=== PATIENT | female | born 1990 | race Caucasian/White ===

== ENCOUNTER 2017-02-01 14:10 | Inpatient (IN) | payer BC, OTHER ==
[~2017-02-01] VITALS: Ht 167.6 cm; Wt 77.1 kg
--- NOTE | 2017-02-01 14:00 | NUR ---
pre-assessment note: pt is in stable condition at this time, pt was assessed in intake with stable V/S: B/P 116/63, 82,18,98.7,99%. pt is able to sign consents, explained unit protocols and regulations.
[2017-02-01] MEDS ORDERED: MAG HYDROX/AL HYDROX/SIMETH 30 ML LIQUID UDC PO PRN (14:30)
[2017-02-01] MEDS ORDERED: ACETAMINOPHEN 325 MG TABLET PO PRN (14:30)
[2017-02-01] MEDS ORDERED: LORAZEPAM 1 MG TABLET PO PRN ×2 (14:30)
[2017-02-01] MEDS ORDERED: BUPRENORPHINE HCL 2 MG TAB.SUBL SL PRN (14:30)
[2017-02-01] MEDS ORDERED: ONDANSETRON 4 MG/2 ML VIAL IM PRN (14:30)
[2017-02-01] MEDS ORDERED: MAGNESIUM HYDROXIDE 30 ML LIQUID UDC PO PRN (14:30)
[2017-02-01] MEDS ORDERED: LOPERAMIDE HCL 2 MG CAPSULE PO PRN ×2 (14:30)
[2017-02-01] MEDS ORDERED: MIRALAX 17 GM POWD.PACK PO PRN (14:30)
[2017-02-01] MEDS ORDERED: LORAZEPAM 2 MG/1 ML VIAL IM PRN (14:30)
[2017-02-01] MEDS ORDERED: LAMO200T PO (14:49)
[2017-02-01] MEDS ORDERED: GABA600T2 PO ×2 (14:50→14:51)
[2017-02-01] MEDS ORDERED: METH500T PO (14:52)
[2017-02-01] MEDS ORDERED: SUVO20TA PO (14:53)
--- NOTE | 2017-02-01 15:30 | NUR ---
admission note: Pt is a 26 y/o female admitted on 02/01/17 for Heroin, benzo, subutex dependence/withdrawal. She is the primary source of information. Pt is admitted under the care of Dr. Johnston to room 309. Urine has not been provided by pt for urine drug screen and a thorough body as well as belonging check was done by MEDICAL AFFAIRS DIRECTOR. Pt appears to be yawning during assessment. Pt is a pleasant friendly and cooperative. Pt denies any food or drug allergies is a full code and on universal precautions. Pt has no hx of seizures. pt has brought in gabapentin,lamictal, robaxin and controlled sleeping aid. pt has had hx of bartholin glad surgery and wisdom teeth extraction.pt has hx of Anxiety,Depression,bipolar II, ADHD, PTSD,insomnia. pt with primary care physician Dr. Fausto Milan in [place] and Last Psychiatrist she saw was Dr. Chase Cox. Substances: heroin: smokes 2 mg a day for 6 months xanax: 4 mg for 6 months klonopin: 2 mg for 6 months subutex: 32 mg a day for 6 months treatment centers: [facility] days Anthonyit yamini lott - 17 months
[2017-02-01 16:28] LABS: BASOPHILS % (AUTO) 0.8 % (0.0-2.0); EOSINOPHILS # (AUTO) 0.1 K/uL (0.0-0.7); HEMATOCRIT 39.3 % (37-47); HEMOGLOBIN 12.9 G/DL (12.0-16.0); LYMPHOCYTES # (AUTO) 1.3 K/UL (0.8-4.8); LYMPHOCYTES % (AUTO) 26.4 % (20.5-51.5); MEAN CORPUSCULAR HEMOGLOBIN 26.7 UUG (27.0-31.0); MEAN CORPUSCULAR HGB CONC 33 g/dL (32.0-37.0); MEAN CORPUSCULAR VOLUME 81.7 FL (81.0-99.0); MONOCYTES # (AUTO) 0.4 K/UL (0.1-1.30); MONOCYTES % (AUTO) 8.3 % (0.0-11.0); NEUTROPHILS # (AUTO) 3.1 K/UL (1.8-8.9); NEUTROPHILS % (AUTO) 62.5 % (38.5-71.5); PLATELET COUNT (AUTO) 200 K/UL (150-450); RED BLOOD CELL COUNT(AUTO) 4.81 MIL/UL (4.2-5.4); WHITE BLOOD COUNT (AUTO) 4.9 K/UL (4.0-11.2)
[2017-02-01 16:29] LABS: ALANINE AMINOTRANSFERASE 17 U/L (14-59); ALKALINE PHOSPHATASE 63 U/L (50-136); ASPARTATE AMINOTRANSFERASE 21 U/L (15-37); BILIRUBIN,TOTAL 0.5 mg/dL (0.2-1.0); CARBON DIOXIDE 30 mmol/L (21-32); CHLORIDE 102 mmol/L (98-107); CREATININE 0.8 mg/dL (0.6-1.3); GLUCOSE 87 mg/dL (74-106); MAGNESIUM 1.9 mg/dL (1.8-2.4); POTASSIUM 4.2 mmol/L (3.5-5.1); TOTAL PROTEIN, SERUM 7.1 g/dL (6.4-8.2); UREA NITROGEN, BLOOD 11 mg/dL (7-18)
[2017-02-01 16:39] LABS: THYROID STIMULATING HORMONE 0.883 mIU/mL (0.358-3.740)
[2017-02-01 17:17] LABS: ETHANOL < 3 MG/DL (0-0)
--- NOTE | 2017-02-01 19:28 | NUR ---
end of shift note: pt still has not provided UDS. pt is admitted for opiate/benzo withdrawal/dependence. pts last cows 5 and ciwa 6 pt seen and examined by with new orders for customized subutex and ativan taper. will endorse pt to warping mill operator nurse.
[2017-02-01 20:00] VITALS: BP 110/71
--- NOTE | 2017-02-01 20:00 | NUR ---
START OF SHIFT NOTE PATIENT IN ROOM. UPON GREETING ,PATIENT C/O SWEATING, ANXIETY, CHILLS, RESTLESSNESS, STUFFY NOSE, FLUSHED, NAUSEA BUT NO EMESIS, GENERALIZED BODY ACHES 6/10 AND TREMORS . RECEIVED REPORT FROM DAY SHIFT NURSE. PATIENT IS A 26 YEAR OLD FEMALE NEWLY ADMITTED FOR OPIATE/BENZO WITHDRAWAL. PATIENT IS FULL CODE, REGULAR DIET AND NO KNOWN ALLERGY. PATIENT IS ON 5 DAY ATIVAN AND 5 DAY SUBUTEX TAPER TO START TODAY. UPON ADMISSION, PATIENT REPORTED USING HEROIN SMOKES 2 MG FOR 6 MONTHS. XANAX 4 MG FOR 6 MONTHS. KLONOPIN 2 MG FOR 6 MONTHS AND SUBUTEX 32 MG FOR 4 MONTHS. PATIENT REPORTS PMH OF BARTHOLIN GLAND SURGERY,WISDOM TEETH EXTRACTION, BIPOLAR II ,ADHD,PTSD, GENERALIZED ANXIETY DISORDER , DEPRESSION AND INSOMNIA. SKIN INTACT. PATIENT DID NOT PROVIDE UA AT THIS TIME. PATIENT DID NOT REQUIRE PRN MEDICATION DURING THE DAY. LAST COWS 5 AND CIWA 6. ON FALL PRECAUTION. SAFETY MEASURES IN PLACE. CALL LIGHT IN REACH. WILL CONTINUE TO MONITOR
[2017-02-01 20:44] LABS: *URINE HCG, QUAL NEGATIVE (NEGATIVE)
[2017-02-01] MEDS ORDERED: LORAZEPAM 1 MG TABLET PO SCH (21:00)
[2017-02-01] MEDS ORDERED: BUPRENORPHINE HCL 2 MG TAB.SUBL SL SCH (21:00)
[2017-02-01 21:16] LABS: *AMPHETAMINE, URINE NEGATIVE (NEGATIVE); *BARBITURATE, URINE NEGATIVE (NEGATIVE); *CANNABINOID, URINE POSITIVE (NEGATIVE); *COCCAINE, URINE NEGATIVE (NEGATIVE); *OPIATE, URINE POSITIVE (NEGATIVE); *PHENCYCLIDINE SCREEN,URINE NEGATIVE (NEGATIVE)
[2017-02-01] MEDS ORDERED: LORAZEPAM 1 MG TABLET ONE (21:36)
[2017-02-01] MEDS ORDERED: BUPRENORPHINE HCL 2 MG TAB.SUBL SL ONE (21:36)
[2017-02-01] MEDS ORDERED: PRAZOSIN HCL 1 MG CAPSULE ONE (21:37)
[2017-02-01] MEDS: GABAPENTIN 300 MG CAPSULE PO SCH (21:38)
[2017-02-01] MEDS ORDERED: GABAPENTIN 300 MG CAPSULE ONE (21:38)
[2017-02-01] MEDS: PRAZOSIN HCL 1 MG CAPSULE PO SCH (21:38)
[2017-02-01] MEDS ORDERED: ONDANSETRON ODT 4 MG TAB.RAPDIS ONE (21:38)
[2017-02-01] MEDS: METHOCARBAMOL 750 MG TABLET PO PRN (21:38)
--- NOTE | 2017-02-01 21:38 | NUR ---
PRN ROBAXIN AND ZOFRAN ADMINISTRATION PATIENT C/O NAUSEA , NO EMESIS AND GENERALIZED BODY ACHES 01/12. PRN ROBAXIN AND ZOFRAN GIVEN. WILL MONITOR FOR EFFECTIVENESS
[2017-02-01] MEDS ORDERED: METHOCARBAMOL 750 MG TABLET ONE (21:39)
[2017-02-01] MEDS: ONDANSETRON ODT 4 MG TAB.RAPDIS SL PRN (21:39)
--- NOTE | 2017-02-01 22:38 | NUR ---
PRN ROBAXIN AND ZOFRAN REASSESSMENT PAIN LEVEL 2/10 AT THIS TIME, TOLERABLE AND NAUSEA CEASED. WILL CONTINUE TO MONITOR
[2017-02-01] MEDS: diphenhydrAMINE 50 MG CAPSULE PO PRN (23:19)
[2017-02-01] MEDS: CLONIDINE HCL 0.1 MG TABLET PO PRN (23:19)
--- NOTE | 2017-02-01 23:19 | NUR ---
PRN BENADRYL AND CATAPRES ADMINISTRATION PATIENT C/O ANXIETY, SWEATING AND UNABLE TO SLEEP. PRN BENADRYL AND CATAPRES GIVEN. WILL MONITOR FOR EFFECTIVENESS
[2017-02-01] MEDS ORDERED: CLONIDINE HCL 0.1 MG TABLET ONE (23:24)
[2017-02-01] MEDS ORDERED: diphenhydrAMINE 50 MG CAPSULE ONE (23:25)
[2017-02-02] VITALS: BP 112/73
--- NOTE | 2017-02-02 00:19 | NUR ---
BENADRYL AND CATAPRES RE-ASSESSMENT PATIENT ASLEEP AT THIS TIME. WILL CONTINUE TO MONITOR
[2017-02-02 04:00] VITALS: BP 101/56
--- NOTE | 2017-02-02 07:09 | NUR ---
Start of Shift Endorsement received from nightshift nurse. Pt is a 26 y/o female admitted for heroin and Xanax dependence. Pt has been placed on a 5 day Subutex and 5 day Ativan taper. The first dose of the Subutex taper was initiated during nightshift. Pt is mildly withdrawing at this time AEB COWS 3, CIWA 2 at 0400. Pt slept 11 hours during the night. Pt appears to be sleeping at this time, pt is responsive to touch and name. Pt received PRN Robaxin, Zofran, Benadryl and Clonidine for withdrawal symptoms. VS WNL. full Code. PT is alert and oriented x4. Pt is in STABLE condition at this time. Remains compliant with medication and diet regimen. All needs have been met, All safety measures in place per hospital policy. Bed in lowest position, side rails up x2, call-light within reach. Will continue to monitor
--- NOTE | 2017-02-02 07:17 | NUR ---
END OF SHIFT NOTE MONITORED PATIENT THROUGHOUT SHIFT. PATIENT C/O SWEATING, ANXIETY, CHILLS, RESTLESSNESS, STUFFY NOSE, FLUSHED, NAUSEA BUT NO EMESIS, GENERALIZED BODY ACHES 6/10 AND TREMORS BEGINNING OF SHIFT . PATIENT IS A 26 YEAR OLD FEMALE NEWLY ADMITTED FOR OPIATE/BENZO WITHDRAWAL. PATIENT IS FULL CODE, REGULAR DIET AND NO KNOWN ALLERGY. PATIENT STARTED ON 5 DAY ATIVAN AND 5 DAY SUBUTEX TAPER. UPON ADMISSION, PATIENT REPORTED USING HEROIN SMOKES 2 MG FOR 6 MONTHS. XANAX 4 MG FOR 6 MONTHS. KLONOPIN 2 MG FOR 6 MONTHS AND SUBUTEX 32 MG FOR 4 MONTHS. PATIENT REPORTS PMH OF BARTHOLIN GLAND SURGERY,WISDOM TEETH EXTRACTION, BIPOLAR II ,ADHD,PTSD, GENERALIZED ANXIETY DISORDER , DEPRESSION AND INSOMNIA. SKIN INTACT. PATIENT IN HER ROOM MOST OF THE SHIFT. PATIENT WAS GIVEN PRN ROBAXIN AND ZOFRAN 8. BENADRYL AND CATAPRES AT 2319. PATIENT COMPLIANT WITH MEDICATIONS. LAST COWS 3 AND CIWA 2. ON FALL PRECAUTION. SAFETY MEASURES IN PLACE. CALL LIGHT IN REACH. WILL CONTINUE TO MONITOR .SLEPT 11 HOURS. FLUID INTAKE 300 ML. VOIDED X 1 . NO BM.
[2017-02-02 08:00] VITALS: BP 114/69
[2017-02-02] MEDS: LORAZEPAM 1 MG TABLET PO SCH ×4 (08:20→21:18)
[2017-02-02] MEDS: MULTIVITAMINS,THERAPEUTIC TABLET PO SCH (08:21)
[2017-02-02] MEDS: CLONIDINE HCL 0.1 MG TABLET PO PRN ×2 (08:21→14:37)
[2017-02-02] MEDS: BUPRENORPHINE HCL 2 MG TAB.SUBL SL SCH ×4 (08:21→21:19)
[2017-02-02] MEDS: GABAPENTIN 300 MG CAPSULE PO SCH ×3 (08:21→21:19)
[2017-02-02] MEDS ORDERED: TUBERCULIN,PURIF.PROT.DERIV. 5 TU/0.1 ML TEST ID ONE (09:00)
[2017-02-02 12:00] VITALS: BP 114/79
[2017-02-02] MEDS: LAMOTRIGINE 200 MG TABLET PO SCH (12:38)
[2017-02-02 14:10] LABS: HEPATITIS B SURFACE AG Negative (Negative)
--- NOTE | 2017-02-02 14:39 | NUR ---
PRN CLONIDINE Pt c/o hot and cold chills and sweating. PRN Clonidine administered as ordered. Primary nurse to reassess.
[2017-02-02] MEDS: ONDANSETRON ODT 4 MG TAB.RAPDIS SL PRN (15:35)
[2017-02-02 16:00] VITALS: BP 119/70
--- NOTE | 2017-02-02 19:05 | NUR ---
Start of Shift Endorsement given to nightshift nurse. Pt is a 26 y/o female admitted for heroin and Xanax dependence. Pt has been placed on a 5 day Subutex and 5 day Ativan taper. Pt is moderately withdrawing at this time AEB COWS 8, CIWA 9 at 1700. Educated pt on S/E of taper medications. Educated pt on diet regimen. Encouraged pt to drink more fluids. Pt did not participate in groups or activities. Pt received PRN Clonidine x2 and Zofran x2. Intake: 1480ml, Void x2, BM x0. VS WNL. full Code. PT is alert and oriented x4. Pt is in STABLE condition at this time. Remains compliant with medication and diet regimen. All needs have been met, All safety measures in place per hospital policy. Bed in lowest position, side rails up x2, call-light within reach. Will continue to monitor
--- NOTE | 2017-02-02 19:25 | NUR ---
MD Communication: Clarified with MD of 2100 scheduled 2mg Ativan PO dose and an additional 2mg Ativan PO per taper for a total of 4mg Ativan. New order to discontinue 2100 scheduled 2mg Ativan PO. 2mg Ativan PO per taper to be given. Orders noted and carried out.
[2017-02-02 20:00] VITALS: BP 103/60
--- NOTE | 2017-02-02 20:00 | NUR ---
START OF SHIFT NOTE PATIENT IN HER ROOM. PATIENT ALERT AND ORIENTED X 3. PATIENT C/O ABDOMINAL CRAMPING, UNABLE TO PASS STOOL, ANXIETY , SWEATING , CHILLS, GENERALIZED BODY ACHES 01/12, NO N/V AND POOR APPETITE. RECEIVED REPORT FROM DAY SHIFT NURSE. PATIENT IS A 26 YEAR OLD FEMALE, ADMITTED FOR OPIATE/BENZO WITHDRAWAL. PATIENT IS FULL CODE, REGULAR DIET AND NO KNOWN ALLERGY. PATIENT IS ON 5 DAY ATIVAN AND 5 DAY SUBUTEX TAPER . UPON ADMISSION, PATIENT REPORTED USING HEROIN SMOKES 2 MG FOR 6 MONTHS. XANAX 4 MG FOR 6 MONTHS. KLONOPIN 2 MG FOR 6 MONTHS AND SUBUTEX 32 MG FOR 4 MONTHS. PATIENT REPORTS PMH OF BARTHOLIN GLAND SURGERY, WISDOM TEETH EXTRACTION, BIPOLAR II , ADHD, PTSD, GENERALIZED ANXIETY DISORDER , DEPRESSION AND INSOMNIA. SKIN INTACT. PATIENT IN HER ROOM MOST OF THE DAY. PATIENT WAS GIVEN PRN ZOFRAN AND CLONIDINE. LAST COWS 8 AND CIWA 9. ON FALL PRECAUTION. SAFETY MEASURES IN PLACE. CALL LIGHT IN REACH. WILL CONTINUE TO MONITOR Addendum: 02/02/17 at 2206 by KELSIE GOODMAN LVN USER ERROR: START OF SHIFT NOTE UNDER XAVI GOODMAN
[2017-02-02] MEDS: PRAZOSIN HCL 1 MG CAPSULE PO SCH (21:00)
--- NOTE | 2017-02-02 21:00 | NUR ---
MINIPRESS HELD PATIENT'S MINIPRESS HELD DUR TO PATIENT'S BP-103/60. ORDER TO HOLD MINIPRESS IF BP <100/70
[2017-02-02] MEDS: DICYCLOMINE HCL 20 MG TABLET PO PRN (21:18)
--- NOTE | 2017-02-02 21:18 | NUR ---
PRN MOM , BENTYL AND ROBAXIN ADMINISTRATION PATIENT C/O ABDOMINAL CRAMPING, UNABLE TO PASS STOOL AND GENERALIZED BODY ACHES 01/12. PRN MOM, BENTYL AND ROBAXIN GIVEN. WILL MONITOR FOR EFFECTIVENESS
[2017-02-02] MEDS: METHOCARBAMOL 750 MG TABLET PO PRN (21:19)
[2017-02-02] MEDS ORDERED: TRAZODONE 50 MG TABLET PO ONE (21:45)
[2017-02-02] MEDS ORDERED: TRAZODONE 50 MG TABLET ONE (21:47)
--- NOTE | 2017-02-02 22:18 | NUR ---
PRN ERICAYL AND SAMUEL RE-ASSESSMENT STOMACH CRAMPING AND BODY ACHES SUBSIDED . MEDICATIONS HELPFUL . WILL CONTINUE TO MONITOR
[2017-02-03] VITALS: BP 105/61
[2017-02-03] MEDS: HYDROXYZINE PAMOATE 25 MG CAPSULE PO PRN ×2 (00:28→22:08)
--- NOTE | 2017-02-03 00:28 | NUR ---
PRN CATAPRES AND VISTARIL ADMINISTRATION PATIENT C/O ANXIETY AND HOT/COLD SWEATS. PRN CATAPRES AND VISTARIL GIVEN. WILL MONITOR FOR EFFECTIVENESS
[2017-02-03] MEDS: CLONIDINE HCL 0.1 MG TABLET PO PRN (00:29)
[2017-02-03] MEDS ORDERED: HYDROXYZINE PAMOATE 25 MG CAPSULE ONE (00:36)
[2017-02-03] MEDS: diphenhydrAMINE 50 MG CAPSULE PO PRN ×2 (01:26→22:08)
--- NOTE | 2017-02-03 01:26 | NUR ---
Benadryl PRN: Pt c/o inability to sleep. Pt educated about relaxation techniques. Benadryl PRN given as ordered. Will continue to monitor.
--- NOTE | 2017-02-03 01:26 | NUR ---
PRN CATAPRES AND VISTARIL RE-ASSESSMENT PATIENT STATES CATAPRES AND VISTARIL MILDLY EFFECTIVE. PATIENT STILL UNABLE TO SLEEP AND ANXIOUS. WILL CONTINUE TO MONITOR.
--- NOTE | 2017-02-03 02:06 | NUR ---
MELODIE KNIGHT RE-ASSESSMENT PATIENT STATES SHE STILL CAN'T SLEEP. CONTINUE TO REDIRECT AND RELAXATION TECHNIQUE PROVIDED.
[2017-02-03 04:00] VITALS: BP 88/54
[2017-02-03] MEDS: IBUPROFEN 600 MG TABLET PO PRN (04:10)
[2017-02-03] MEDS: DICYCLOMINE HCL 20 MG TABLET PO PRN ×2 (04:10→20:17)
--- NOTE | 2017-02-03 04:10 | NUR ---
PRN MOTRIN AND BENTYL ADMINISTRATION PATIENT C/O STOMACH CRAMPING AND GENERALIZED BODY ACHES 5/10. PRN BENTYL AND MOTRIN GIVEN. WILL MONITOR FOR EFFECTIVENESS
--- NOTE | 2017-02-03 05:10 | NUR ---
PRN MERON AND DEBBIE RE-ASSESSMENT MERON AND DEBBIE HELPFUL. PATIENT MILDLY ANXIOUS. CONTINUE TO REDIRECT PATIENT. PER PATIENT SHE WILL TRY TO GO TO SLEEP. WILL CONTINUE TO MONITOR.
--- NOTE | 2017-02-03 07:05 | NUR ---
Start of Shift Endorsement received from nightshift nurse. Pt is a 26 y/o female admitted for heroin and Xanax dependence. Pt has been placed on a 5 day Subutex and 5 day Ativan taper. The first dose of the Subutex taper was initiated during nightshift. Pt is mildly withdrawing at this time AEB COWS 3, CIWA 3 at 0400. Pt slept 11 hours during the night. Pt appears to be sleeping at this time, pt is responsive to touch and name. Pt received PRN Milk of Magnesium, Trazodone, Bentyl, Clonidine, Motrin and Benadryl. VS WNL. full Code. PT is alert and oriented x4. Pt is in STABLE condition at this time. Remains compliant with medication and diet regimen. All needs have been met, All safety measures in place per hospital policy. Bed in lowest position, side rails up x2, call-light within reach. Will continue to monitor
--- NOTE | 2017-02-03 07:17 | NUR ---
END OF SHIFT NOTE PATIENT ALERT AND ORIENTED X 3. PATIENT C/O ABDOMINAL CRAMPING, UNABLE TO PASS STOOL, ANXIETY , SWEATING , CHILLS, GENERALIZED BODY ACHES /10, NO N/V AND POOR APPETITE BEGINNING OF SHIFT. PATIENT IS A 26 YEAR OLD FEMALE, ADMITTED FOR OPIATE/BENZO WITHDRAWAL. PATIENT IS FULL CODE, REGULAR DIET AND NO KNOWN ALLERGY. PATIENT IS ON 5 DAY ATIVAN AND 5 DAY SUBUTEX TAPER . UPON ADMISSION, PATIENT REPORTED USING HEROIN SMOKES 2 MG FOR 6 MONTHS. XANAX 4 MG FOR 6 MONTHS. KLONOPIN 2 MG FOR 6 MONTHS AND SUBUTEX 32 MG FOR 4 MONTHS. PATIENT REPORTS PMH OF BARTHOLIN GLAND SURGERY, WISDOM TEETH EXTRACTION, BIPOLAR II , ADHD, PTSD, GENERALIZED ANXIETY DISORDER , DEPRESSION AND INSOMNIA. SKIN INTACT. PATIENT IN HER ROOM MOST OF THE SHIFT. PATIENT WAS GIVEN PRN MOM, BENTYL , ROBAXIN AT 2118,CLONIDINE AND VISTARIL AT 0028, BENADRYL AT 0126. ONE TIME TRAZADONE GIVEN AT 2123. PATIENT STILL UNABLE TO SLEEP. PRN BENADRYL GIVEN AT 0126. AT 0410, PRN BENTYL AND MOTRIN GIVEN. MINIPRESS WAS HELD AT 2100 DUE TO BP-103/60. MINIPRESS WITH HOLD ORDER IF BP <100/70. RELAXATION TECHNIQUE PROVIDED THROUGHOUT SHIFT. ENDORSED TO NEXT SHIFT FOR SLEEP MEDICATION DUE TO INSOMNIA. LAST COWS 3 AND CIWA 3. ON FALL PRECAUTION. SAFETY MEASURES IN PLACE. CALL LIGHT IN REACH. PATIENT REMAIN FREE OF INJURY. WILL CONTINUE TO MONITOR. SLEPT 4 HOURS. FLUID INTAKE 737 ML. VOIDED X 1. NO BM.
[2017-02-03 08:02] VITALS: BP 92/57
[2017-02-03] MEDS: GABAPENTIN 300 MG CAPSULE PO SCH ×2 (08:53→14:11)
[2017-02-03] MEDS: LAMOTRIGINE 200 MG TABLET PO SCH (08:54)
[2017-02-03] MEDS: MULTIVITAMINS,THERAPEUTIC TABLET PO SCH (08:54)
[2017-02-03] MEDS: BUPRENORPHINE HCL 2 MG TAB.SUBL SL SCH ×3 (08:54→20:17)
[2017-02-03] MEDS: LORAZEPAM 1 MG TABLET PO SCH ×3 (08:54→20:16)
--- NOTE | 2017-02-03 09:07 | NUR ---
Clinician encouraged client to attend groups. Client states she has no energy.
[2017-02-03] MEDS ORDERED: MAGNESIUM CITRATE 296 ML BOTTLE PO PRN (11:30)
[2017-02-03 12:00] VITALS: BP 90/52
[2017-02-03 16:00] VITALS: BP 97/58
--- NOTE | 2017-02-03 18:50 | NUR ---
end of Shift Endorsement given to nightshift nurse. Pt is a 26 y/o female admitted for heroin and Xanax dependence. Pt has been placed on a 5 day Subutex and 5 day Ativan taper. Pt is moderately withdrawing at this time AEB COWS 6, CIWA 4 at 1600. Reinforced Education pt on S/E of taper medications. Educated pt on diet regimen. Encouraged pt to drink more fluids. Pt did not participate in groups or activities. Pt received PRN Clonidine x1 and Magnesium Citrate, medication was effective AEB pt reported BM. Intake: 1000ml, Void x1, BM x1. VS WNL. full Code. PT is alert and oriented x4. Pt is in STABLE condition at this time. Remains compliant with medication and diet regimen. All needs have been met, All safety measures in place per hospital policy. Bed in lowest position, side rails up x2, call-light within reach. Will continue to monitor
[2017-02-03 20:00] VITALS: BP 105/52
--- NOTE | 2017-02-03 20:00 | NUR ---
1999 Patient received awake and lying in bed. Patient responds to nurse's greeting and introduction with, " Hi" Patient's color is pink and her skin is warm, dry and intact. Overall appearance is disheveled. Patient is oriented to person, place, day and her personal situation. Reoriented to date and time. Patient's lung sounds are clear bilaterally and active bowel sounds are noted X 4 abdominal Quads, per auscultation. Patient states that she has been eating her regular diet trays " a little" and taking fluids ad rosas with no real gastric issues. Patient states further that she did have one bowel movement today, after she was given prn p.o. laxative medication. Patient states that she did attend one [facility] group today and has been trying to be as compliant as possible with everything that is asked of her, here at [facility]. Vital signs are: 98.4-80-18 105/52, O2 Sat 97%, COWS 3, CIWA 3. Patient was admitted on 02/01/17 for: Heroin, Xanax, Klonopin and Subutex withdrawal and she is currently on both a 5-Day Ativan medication taper and a 5-Day Subutex medication taper for withdrawal symptoms, and she has apparently been tolerating these medications well thus far. Patient is cooperative and verbally appropriate when interacting with nurse, though mood/affect is guarded and flat. Bed is locked and in lowest position, bed rails are up X 2 and call light within patient's easy reach.
[2017-02-03] MEDS: PRAZOSIN HCL 1 MG CAPSULE PO SCH (20:16)
[2017-02-03] MEDS: QUETIAPINE FUMARATE 100 MG TABLET PO SCH (20:17)
--- NOTE | 2017-02-03 20:17 | NUR ---
PRN MEDICATION: Prn Bentyl 20 mg p.o. given per c/o " well, I have a little stomach cramps. Maybe I better get something for it".
[2017-02-03] MEDS ORDERED: GABAPENTIN 300 MG CAPSULE PO SCH (21:00)
--- NOTE | 2017-02-03 21:07 | NUR ---
REASSESSMENT PRN MEDICATION: Patient is resting quietly in -like position of comfort, with eyes closed and respirations quiet, even, unlabored at 12.
--- NOTE | 2017-02-03 22:08 | NUR ---
PRN MEDICATIONS: Prn Benadryl 50 mg p.o. given per c/o, " I still can't go to sleep" and Prn Vistaril 25 mg p.o. given per c/o anxiety.
--- NOTE | 2017-02-03 23:08 | NUR ---
REASSESSMENT PRN MEDICATIONS: Patient is sleeping soundly with eyes closed and respirations quiet, even, unlabored at 12.
--- NOTE | 2017-02-04 | NUR ---
Patient refused to be awakened for V/S to be done at this time.
--- NOTE | 2017-02-04 04:00 | NUR ---
Patient refused to be awakened for V/S to be taken at this time.
--- NOTE | 2017-02-04 06:30 | NUR ---
0630 Patient slept a total of 8 hours and she had 3 voids and no stools. Total intake was 1,180 ml p.o. Prn medications given noted separately per floor protocol. V/SS afebrile, last COWS 3, last CIWA 3 at 1999. Patient is presently sleeping soundly with eyes closed and respirations quiet, even, unlabored at 12. Patient is in stable condition at this time.
--- NOTE | 2017-02-04 07:04 | NUR ---
Start of Shift Endorsement received from nightshift nurse. Pt is a 26 y/o female admitted for heroin and Xanax dependence. Pt has been placed on a 5 day Subutex and 5 day Ativan taper. The first dose of the Subutex taper was initiated during nightshift. Pt is moderately withdrawing at this time AEB COWS 5, CIWA 4 at 0400. Pt slept 8 hours during the night. Pt received PRN Vistaril, Benadryl and Bentyl. Pt reports that Seroquel was not effective and requests higher dose. VS WNL. full Code. PT is alert and oriented x4. Pt is in STABLE condition at this time. Remains compliant with medication and diet regimen. All needs have been met, All safety measures in place per hospital policy. Bed in lowest position, side rails up x2, call-light within reach. Will continue to monitor
[2017-02-04 08:01] VITALS: BP 91/57
[2017-02-04] MEDS: MULTIVITAMINS,THERAPEUTIC TABLET PO SCH (08:28)
[2017-02-04] MEDS: GABAPENTIN 300 MG CAPSULE PO SCH ×3 (08:29→20:45)
[2017-02-04] MEDS: LORAZEPAM 1 MG TABLET PO SCH ×4 (08:29→20:44)
[2017-02-04] MEDS: LAMOTRIGINE 200 MG TABLET PO SCH (08:29)
[2017-02-04] MEDS ORDERED: BUPRENORPHINE HCL 2 MG TAB.SUBL SL SCH (09:00)
--- NOTE | 2017-02-04 10:05 | NUR ---
Therapist prompted client about group times. Client stated she will go if she feels better.
[2017-02-04 12:00] VITALS: BP 114/80
[2017-02-04] MEDS ORDERED: TRAZODONE 50 MG TABLET PO PRN (12:30)
[2017-02-04] MEDS: BUPRENORPHINE HCL 2 MG TAB.SUBL SL SCH ×2 (15:25→20:45)
[2017-02-04 16:00] VITALS: BP 118/76
--- NOTE | 2017-02-04 18:52 | NUR ---
end of Shift Endorsement given to nightshift nurse. Pt is a 26 y/o female admitted for heroin and Xanax dependence. Pt has been placed on a 5 day Subutex and 5 day Ativan taper. Pt is moderately withdrawing at this time AEB COWS 4, CIWA 4 at 1600. Encouraged pt to participate in groups and activities. PT participated in groups and activities. Pt did not receive any PRN medications. Educated pt on deep breathing technique. Intake: 2265ml, Void x4, BM x3. VS WNL. full Code. PT is alert and oriented x4. Pt is in STABLE condition at this time. Remains compliant with medication and diet regimen. All needs have been met, All safety measures in place per hospital policy. Bed in lowest position, side rails up x2, call-light within reach. Will continue to monitor
[2017-02-04 20:00] VITALS: BP 121/80
--- NOTE | 2017-02-04 20:00 | NUR ---
Start of Shift Pt is a 26 year old female admitted for Opiate/Benzo dependence, placed on 5 day Ativan and 5 day Subutex taper. Pt reported using Heroin 2mg/daily, Xanax 4mg/daily, Klonopin 2mg/daily and Subutex 32mg/daily. PMH: Bartholin gland surgery, widom teeth extraction, bipolar II, ADHD, PTSD, generalized anxiety disorder, depression and insomnia. NKA, regular diet, fall precautions and full code. Upon assessment, pt presents with anxiety, reports feeling fatigue, skin flushed/clammy, reports mild chills throughout body, respirations even/unlabored, denies SOB/chest pain, bowel sounds active x4, abdomen soft. Safety measures in place, call light within reach, side rails up x2, bed locked and in low position. Will continue to monitor.
[2017-02-04] MEDS: QUETIAPINE FUMARATE 100 MG TABLET PO SCH (20:45)
[2017-02-04] MEDS ORDERED: PRAZOSIN HCL 1 MG CAPSULE PO SCH (21:00)
[2017-02-04] MEDS: diphenhydrAMINE 50 MG CAPSULE PO PRN (23:22)
[2017-02-04] MEDS: HYDROXYZINE PAMOATE 25 MG CAPSULE PO PRN (23:22)
--- NOTE | 2017-02-04 23:22 | NUR ---
PRN Administration Pt reports feeling anxious and being unable to fall asleep. Vistaril 25mg PRN and Benadryl 50mg PRN administered. Safety measures in place. Will continue to monitor.
[2017-02-05] VITALS: BP 109/63
--- NOTE | 2017-02-05 | NUR ---
Vital Signs BP 109/63, pulse 100, respirations 16, SpO2 98%, temp 98, no pain rated 0/10 CIWA/COWS deferred d/t pt sleeping - to assess while pt is sleeping as ordered. Safety measures in place. Will continue to monitor.
--- NOTE | 2017-02-05 00:22 | NUR ---
PRN Reassessment Upon reassessment, pt is resting, eyes closed, respirations even/unlabored, no s/s of acute distress noted. Safety measures in place, will continue to monitor.
--- NOTE | 2017-02-05 04:00 | NUR ---
Pt refused to be woken up for 0400 VS COWS/CIWA deferred d/t pt sleeping - to assess while pt is awake as ordered. Safety measures in place, will continue to monitor.
--- NOTE | 2017-02-05 07:00 | NUR ---
End of Shift Pt is a 26 year old female admitted for Opiate/Benzo dependence, placed on 5 day Ativan and 5 day Subutex taper. Pt reported using Heroin 2mg/daily, Xanax 4mg/daily, Klonopin 2mg/daily and Subutex 32mg/daily. PMH: Bartholin gland surgery, wisdom teeth extraction, bipolar II, ADHD, PTSD, generalized anxiety disorder, depression and insomnia. NKA, regular diet, fall precautions and full code. During shift, pt presented with anxiety, reports feeling fatigue, skin flushed/clammy, reports mild chills throughout body - scheduled taper medications administered, effective in management of s/s of withdrawal, as reported per pt, COWS 5 and CIWA 4. Benadryl 50mg PRN and Vistaril 25mg PRN and anxiety and difficulty sleeping, effective. Pt slept for 3 hours, intake of 828 ml PO, voids x2 and stool x1. Safety measures in place, call light within reach, side rails up x2, bed locked and in low position. Will continue to monitor.
--- NOTE | 2017-02-05 07:05 | NUR ---
Start of Shift Endorsement received from nightshift nurse. Pt is a 26 y/o female admitted for heroin and Xanax dependence. Pt has been placed on a 5 day Subutex and 5 day Ativan taper. Pt is moderately withdrawing at this time AEB COWS 5, CIWA 4 at 0400. Pt slept 3 hours during the night. Pt reports that the Seroquel 100mg was not effective. Dr. Jackson will be notified. Pt received PRN Vistaril, and Bentyl. . VS WNL. full Code. PT reports feeling tired and sleepy. PT is alert and oriented x4. Pt is in STABLE condition at this time. Remains compliant with medication and diet regimen. All needs have been met, All safety measures in place per hospital policy. Bed in lowest position, side rails up x2, call-light within reach. Will continue to monitor
[2017-02-05 08:00] VITALS: BP 95/62
--- NOTE | 2017-02-05 08:51 | NUR ---
Therapist prompted client about group times. Client reported she would attend all groups.
[2017-02-05] MEDS: BUPRENORPHINE HCL 2 MG TAB.SUBL SL SCH ×3 (08:52→20:56)
[2017-02-05] MEDS: MULTIVITAMINS,THERAPEUTIC TABLET PO SCH (08:52)
[2017-02-05] MEDS: LAMOTRIGINE 200 MG TABLET PO SCH (08:52)
[2017-02-05] MEDS: LORAZEPAM 1 MG TABLET PO SCH ×3 (08:52→20:57)
[2017-02-05] MEDS: GABAPENTIN 300 MG CAPSULE PO SCH ×3 (08:52→20:58)
[2017-02-05 09:00] VITALS: BP 113/74
[2017-02-05 12:00] VITALS: BP 128/69
--- NOTE | 2017-02-05 14:30 | NUR ---
MD communication Pt c/o dysuria, Dr Johnston notified. Ordered UA/C&S. Orders entered, unable to enter orders.
[2017-02-05] MEDS: CLONIDINE HCL 0.1 MG TABLET PO SCH ×2 (15:16→21:08)
[2017-02-05 15:30] LABS: *BILIRUBIN,URIN NEGATIVE (NEGATIVE); *BLOOD, URINE NEGATIVE (NEGATIVE); *COLOR,URINE YELLOW (YELLOW); *KETONES,URINE TRACE (NEGATIVE); *PROTEIN,URINE 1+ (NEGATIVE); *UROBILINOGEN,URINE 0.2 E.U./dl (NORMAL); LEUKOCYTE ESTERASE ,URINE NEGATIVE (NEGATIVE); NITRITE, URINE NEGATIVE (NEGATIVE); UGLUCOSE NEGATIVE (NEGATIVE)
[2017-02-05 16:00] VITALS: BP 115/60
[2017-02-05 16:06] LABS: *CLARITY,URINE CLOUDY (CLEAR)
[2017-02-05 16:08] LABS: BACTERIA,URINE MANY /HPF (NONE SEEN); CALCIUM OXALATE CRYSTALS,UR MODERATE /HPF (NONE SEEN); MUCUS,URINE FEW /LPF (0-FEW); SQUAMOUS EPITHELIAL CELL,UR MODERATE /HPF (NONE SEEN); WBC,URINE 0-3 /HPF (0-3)
--- NOTE | 2017-02-05 16:52 | NUR ---
MD communication Notified Dr Johnston of results, NNO at this time.
--- NOTE | 2017-02-05 18:51 | NUR ---
end of Shift Endorsement given to nightshift nurse. Pt is a 26 y/o female admitted for heroin and Xanax dependence. Pt has been placed on a 5 day Subutex and 5 day Ativan taper. Pt is mildly withdrawing at this time AEB COWS 3, CIWA 2 at 1600. PT participated in groups and activities. Pt ate all of her meals. Pt complained of dysuria. UA was done on the PT per Dr. Johnston and results have been reported to the MD. PT participated in groups and activities. Pt did not receive any PRN medications. Intake: 1600ml, Void x2, BM x0. VS WNL. full Code. PT is alert and oriented x4. Pt is in STABLE condition at this time. Remains compliant with medication and diet regimen. All needs have been met, All safety measures in place per hospital policy. Bed in lowest position, side rails up x2, call-light within reach. Will continue to monitor
[2017-02-05 20:00] VITALS: BP 137/71
--- NOTE | 2017-02-05 20:00 | NUR ---
Start of Shift Pt is a 26 year old female admitted for Opiate/Benzo dependence, placed on 5 day Ativan and 5 day Subutex taper. Pt reported using Heroin 2mg/daily, Xanax 4mg/daily, Klonopin 2mg/daily and Subutex 32mg/daily. PMH: Bartholin gland surgery, wisdom teeth extraction, bipolar II, ADHD, PTSD, generalized anxiety disorder, depression and insomnia. NKA, regular diet, fall precautions and full code. Upon assessment, pt reports feeling anxious, chills/flushing, mild muscle aches, tremors felt, skin noted with moderate sweat, respirations even/unlabored, denies SOB/chest pain, bowel sounds active x4, abdomen soft. Safety measures in place, call light within reach, side rails up x2, bed locked and in low position. Will continue to monitor.
[2017-02-05] MEDS: MIRTAZAPINE 15 MG TABLET PO SCH (20:57)
[2017-02-05] MEDS: QUETIAPINE FUMARATE 100 MG TABLET PO PRN (21:08)
--- NOTE | 2017-02-05 21:08 | NUR ---
PRN Administration Pt c/o of difficulty sleeping, requested aid. Seroquel 100mg PRN administered. Safety measures in place. Will continue to monitor.
--- NOTE | 2017-02-05 22:08 | NUR ---
PRN Reassessment Upon reassessment, pt is in bed, eyes closed, resting, respirations even/unlabored, no s/s of acute distress noted. Safety measures in place. Will continue to monitor.
[2017-02-06] VITALS: BP 115/71
--- NOTE | 2017-02-06 | NUR ---
Vital Signs BP 115/71, pulse 82, respirations 18, SpO2 98%, temp 97.9, no pain 0/10 COWS/CIWA deferred d/t pt sleeping to assess while pt is awake as ordered Safety measures in place. Will continue to monitor.
--- NOTE | 2017-02-06 07:00 | NUR ---
End of Shift Pt is a 26 year old female admitted for Opiate/Benzo dependence, placed on 5 day Ativan and 5 day Subutex taper. Pt reported using Heroin 2mg/daily, Xanax 4mg/daily, Klonopin 2mg/daily and Subutex 32mg/daily. PMH: Bartholin gland surgery, wisdom teeth extraction, bipolar II, ADHD, PTSD, generalized anxiety disorder, depression and insomnia. NKA, regular diet, fall precautions and full code. During shift, pt reported feeling anxious, chills/flushing, mild muscle aches, tremors felt, skin noted with moderate sweat - scheduled taper medications administered, COWS 5 and CIWA 3. Seroquel 100mg PRN administered for sleep. Pt slept for 7 hours, intake of 1500 ml PO, voids x2 and stool x1. Safety measures in place, call light within reach, side rails up x2, bed locked and in low position. Endorsed to day shift.
--- NOTE | 2017-02-06 07:47 | NUR ---
Start of shift note; Received report from night nurse. Patient is currently resting with eyes closed, respirations unlabored. Patient is a 26 year old female admitted on 02/01/17 for Opiate/ Benzo withdrawals. Patient was placed on a 5 day Ativan and 5 day Subutex taper, no adverse reactions noted. Patient is on a full code status, regular diet, NKA. Per endorsement, was notified regarding recent LAB results. Patient's last COWS score is 5 and CIWA score of 3 at 1999. All safety measures secured. Will continue to monitor patient.
[2017-02-06 08:00] VITALS: BP 100/64
[2017-02-06] MEDS ORDERED: LORAZEPAM 1 MG TABLET PO SCH (09:00)
[2017-02-06] MEDS ORDERED: BUPRENORPHINE HCL 2 MG TAB.SUBL SL SCH (09:00)
[2017-02-06] MEDS: GABAPENTIN 300 MG CAPSULE PO SCH ×3 (09:04→21:24)
[2017-02-06] MEDS: CLONIDINE HCL 0.1 MG TABLET PO SCH ×3 (09:04→21:33)
[2017-02-06] MEDS: MULTIVITAMINS,THERAPEUTIC TABLET PO SCH (09:04)
[2017-02-06] MEDS: LAMOTRIGINE 200 MG TABLET PO SCH (09:04)
[2017-02-06 10:26] LABS: *AMPHETAMINE, URINE NEGATIVE (NEGATIVE); *BARBITURATE, URINE NEGATIVE (NEGATIVE); *CANNABINOID, URINE POSITIVE (NEGATIVE); *COCCAINE, URINE NEGATIVE (NEGATIVE); *OPIATE, URINE POSITIVE (NEGATIVE); *PHENCYCLIDINE SCREEN,URINE NEGATIVE (NEGATIVE)
--- NOTE | 2017-02-06 10:56 | NUR ---
MD communication; MD notified regarding patient's urine culture results. No new orders at this time.
[2017-02-06] MEDS ORDERED: CLON0.1T14 PO (11:20)
[2017-02-06] MEDS ORDERED: DICY20TA28 PO (11:20)
[2017-02-06] MEDS ORDERED: BACL10TA PO (11:20)
[2017-02-06] MEDS ORDERED: TRAZ-144 PO (11:20)
[2017-02-06] MEDS ORDERED: NITR100C11 PO (11:20)
[2017-02-06] MEDS ORDERED: MIRT15TA7 PO (11:20)
[2017-02-06] MEDS ORDERED: GABA-534 PO ×2 (11:20)
[2017-02-06] MEDS ORDERED: HYDR-3895 PO (11:20)
[2017-02-06] MEDS ORDERED: QUET100T PO (11:20)
[2017-02-06] MEDS ORDERED: IBUP-1955 PO (11:20)
[2017-02-06] MEDS: NITROFURANTOIN/NITROFURAN MAC 100 MG CAPSULE PO SCH ×2 (11:23→21:25)
--- NOTE | 2017-02-06 11:28 | NUR ---
ENDORSEMENT Pt endorsed to me. Report received from nurse. No distress noted.
--- NOTE | 2017-02-06 11:28 | NUR ---
Endorsement report; Patient is AOX4. Detailed report given to covering nurse. Patient was started on Macrobid 100mg BID for UTI, cystitis. All safety measures secured. Met all needs.
[2017-02-06 12:38] VITALS: BP 121/68
[2017-02-06] MEDS: BACLOFEN 10 MG TABLET PO SCH ×2 (14:02→21:24)
--- NOTE | 2017-02-06 15:07 | NUR ---
EKG EKG resulted and Dr. Jackson made aware with no new orders.
[2017-02-06 17:40] VITALS: BP 117/67
--- NOTE | 2017-02-06 18:06 | NUR ---
END OF SHIFT Pt 26 y/o female admitted for opiate / benzo withdrawal dependence. Pt alert and oriented to name, place, and time. P[place]. Skin warm and dry to touch. Respirations even and unlabored. Pt observed mostly in dining room throughout the day and did attend group activity. Pt was seen by MD today. Pt medication compliant and tolerated well. No ASE noted. Bed on lowest position with side rails x2 up for safety. Call light within reach. No distress noted at this time. Pt is scheduled to be discharged tomorrow.
[2017-02-06 20:00] VITALS: BP 111/90
--- NOTE | 2017-02-06 20:00 | NUR ---
Start of Shift Pt is a 26 year old female admitted for Opiate/Benzo dependence, placed on 5 day Ativan and 5 day Subutex taper - completed. Pt reported using Heroin 2mg/daily, Xanax 4mg/daily, Klonopin 2mg/daily and Subutex 32mg/daily. PMH: Bartholin gland surgery, wisdom teeth extraction, bipolar II, ADHD, PTSD, generalized anxiety disorder, depression and insomnia. NKA, regular diet, fall precautions and full code. Upon assessment, pt reports feeling anxious, skin flushed/clammy, respirations even/unlabored, denies SOB/chest pain, bowel sounds active x4, abdomen soft. Safety measures in place, call light within reach, side rails up x2, bed locked and in low position. Will continue to monitor.
[2017-02-06] MEDS: QUETIAPINE FUMARATE 100 MG TABLET PO PRN (21:25)
--- NOTE | 2017-02-06 21:25 | NUR ---
PRN Administration Pt reports difficulty falling asleep, requests aid. Seroquel 100mg PRN administered as ordered. Safety measures in place, will continue to monitor.
[2017-02-06] MEDS: MIRTAZAPINE 15 MG TABLET PO SCH (21:26)
[2017-02-06] MEDS: IBUPROFEN 600 MG TABLET PO PRN (22:09)
--- NOTE | 2017-02-06 22:09 | NUR ---
PRN Administration Pt reports headache, rated 6-7/10, requested relief. Motrin 600mg PRN administered. Safety measures in place. Will continue to monitor.
--- NOTE | 2017-02-06 23:00 | NUR ---
PRN Reassessment of Medications Upon reassessment, pt is sleeping, no s/s of acute distress noted, respirations even/unlabored. Safety measures in place, will continue to monitor.
[2017-02-07] VITALS: BP 108/55
--- NOTE | 2017-02-07 07:00 | NUR ---
End of Shift Pt is a 26 year old female admitted for Opiate/Benzo dependence, placed on 5 day Ativan and 5 day Subutex taper - completed. Pt reported using Heroin 2mg/daily, Xanax 4mg/daily, Klonopin 2mg/daily and Subutex 32mg/daily. PMH: Bartholin gland surgery, wisdom teeth extraction, bipolar II, ADHD, PTSD, generalized anxiety disorder, depression and insomnia. NKA, regular diet, fall precautions and full code. During shift , pt reported feeling anxious, skin flushed/clammy - scheduled medications administered, COWS 1 & CIWA 1. Seroquel 100mg PRN and Motrin 600mg PRN administered for difficulty sleeping and headache. Pt is scheduled for discharge today. Pt slept for 4 hours, intake of 1000 ml PO, voids x4 and stool x1. Safety measures in place, call light within reach, side rails up x2, bed locked and in low position. Endorsed to day shift nurse.
--- NOTE | 2017-02-07 07:15 | NUR ---
start of shift note: received pt from [employer] nurse pt is in stable condition at this time., no s/s of pain or discomfort. pt is admitted to [facility] for opiate/benzo withdrawal/dependence. pt is set for discharge today. pts last ciwa 1 and cows 1. will assist pt in discharging and will monitor pt for any changes.
[2017-02-07] MEDS: CLONIDINE HCL 0.1 MG TABLET PO SCH (08:05)
[2017-02-07] MEDS: BACLOFEN 10 MG TABLET PO SCH (08:06)
[2017-02-07] MEDS: LAMOTRIGINE 200 MG TABLET PO SCH (08:06)
[2017-02-07] MEDS: MULTIVITAMINS,THERAPEUTIC TABLET PO SCH (08:06)
[2017-02-07] MEDS: NITROFURANTOIN/NITROFURAN MAC 100 MG CAPSULE PO SCH (08:06)
[2017-02-07] MEDS: GABAPENTIN 300 MG CAPSULE PO SCH (08:06)
[2017-02-07 08:21] VITALS: BP 129/73
--- NOTE | 2017-02-07 08:36 | NUR ---
discharge note: pt left the unit in stable condition no s/s of pain or discomfort. no withdrawal symptoms noted. pt teaching administered and pt verbalized understanding. pt's v/s wnl.pt left with all personal belongings. pt will be transferred to [facility] via private car
== END 2017-02-07 08:36 | disposition other institution (70) | DRG 895 ==
LOC: SRC 14:10
PROVIDERS: ADMIT Internal Medicine; ATTEND Internal Medicine
DX: F11.23 Opioid dependence with withdrawal (principal); N30.00 Acute cystitis without hematuria; F13.230 Sedative, hypnotic or anxiolytic dependence with withdrawal, uncomplicated; Z82.49 Family history of ischemic heart disease and other diseases of the circulatory system; Z81.8 Family history of other mental and behavioral disorders; F17.290 Nicotine dependence, other tobacco product, uncomplicated; F43.10 Post-traumatic stress disorder, unspecified; G47.00 Insomnia, unspecified; M26.609 Unspecified temporomandibular joint disorder, unspecified side; F90.9 Attention-deficit hyperactivity disorder, unspecified type; F31.9 Bipolar disorder, unspecified; B96.20 Unspecified Escherichia coli [E. coli] as the cause of diseases classified elsewhere
CPT/HCPCS: 36415; 70030-TC; 71010; 80307; 80346; 80349; 80361; 83735; 84443; 84703; 85025; 86592; 86705; 86803; 87077; 87086; 87340; 87806; 93005; G0480; J2405; Q0162; Q0163

== ENCOUNTER 2017-04-21 14:14 | Inpatient (IN) | payer BC, OTHER ==
[~2017-04-21] VITALS: Ht 167.6 cm; Wt 90.7 kg
[~2017-04-21 14:14] MED LIST: BACL10TA PO; CLON0.1T14 PO; DICY20TA28 PO; GABA-534 PO; HYDR-3895 PO; IBUP-1955 PO; LAMO200T PO; MIRT15TA7 PO; NITR100C11 PO; QUET100T PO; TRAZ-144 PO
[2017-04-21 16:00] VITALS: BP 125/72
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
[2017-04-21 16:59] LABS: *URINE HCG, QUAL NEGATIVE (NEGATIVE)
[2017-04-21 17:04] LABS: *AMPHETAMINE, URINE NEGATIVE (NEGATIVE); *BARBITURATE, URINE NEGATIVE (NEGATIVE); *CANNABINOID, URINE POSITIVE (NEGATIVE); *COCCAINE, URINE POSITIVE (NEGATIVE); *OPIATE, URINE POSITIVE (NEGATIVE); *PHENCYCLIDINE SCREEN,URINE NEGATIVE (NEGATIVE)
[2017-04-21 18:44] LABS: ALANINE AMINOTRANSFERASE 56 U/L (14-59); ALKALINE PHOSPHATASE 61 U/L (50-136); ASPARTATE AMINOTRANSFERASE 43 U/L (15-37); BILIRUBIN,TOTAL 0.7 mg/dL (0.2-1.0); CARBON DIOXIDE 34 mmol/L (21-32); CHLORIDE 101 mmol/L (98-107); CREATININE 0.9 mg/dL (0.6-1.3); ETHANOL < 3 MG/DL (0-0); GLUCOSE 89 mg/dL (74-106); MAGNESIUM 1.8 mg/dL (1.8-2.4); POTASSIUM 3.4 mmol/L (3.5-5.1); TOTAL PROTEIN, SERUM 7.1 g/dL (6.4-8.2); UREA NITROGEN, BLOOD 7 mg/dL (7-18)
[2017-04-21 19:29] LABS: HEMATOCRIT 35.6 % (37-47); MEAN CORPUSCULAR HEMOGLOBIN 28.1 UUG (27.0-31.0); MEAN CORPUSCULAR HGB CONC 34 g/dL (32.0-37.0); MEAN CORPUSCULAR VOLUME 83.7 FL (81.0-99.0); NEUTROPHILS % (AUTO) 55.5 % (38.5-71.5); PLATELET COUNT (AUTO) 176 K/UL (150-450); RED BLOOD CELL COUNT(AUTO) 4.25 MIL/UL (4.2-5.4); WHITE BLOOD COUNT (AUTO) 5.8 K/UL (4.0-11.2)
[2017-04-21 19:30] LABS: BASOPHILS % (AUTO) 0.4 % (0.0-2.0); EOSINOPHILS # (AUTO) 0.1 K/uL (0.0-0.7); LYMPHOCYTES # (AUTO) 1.6 K/UL (0.8-4.8); LYMPHOCYTES % (AUTO) 27.7 % (20.5-51.5); MONOCYTES # (AUTO) 0.8 K/UL (0.1-1.30); MONOCYTES % (AUTO) 14.4 % (0.0-11.0); NEUTROPHILS # (AUTO) 3.2 K/UL (1.8-8.9)
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
[2017-04-21 20:00] VITALS: BP 130/66
--- NOTE | 2017-04-21 20:34 | NUR ---
PRN MEDICATION Ativan 1 mg PO given at 2033 for CIWA 10 with noted tremors, anxiety, restlessness, nausea, pain, and tactile disturbances of pins and needles in extremities. Effect pending Clonidine 0.1 mg PO given at 2033 for restlessness, anxiety Trazodone 50 mg PO given at 2033 for insomnia, and difficulty falling asleep. Motrin 600 mg PO given at 2033 for pain of 6 on scale of 1-10 generalized throughout body, around eyes and head. Effect pending
--- NOTE | 2017-04-21 20:42 | NUR ---
PRN medication Zofran 4mg SL given at 2041 for complaints of nausea. Effect pending
--- NOTE | 2017-04-21 21:40 | NUR ---
Reassessment of patient Reassessment of patient completed one hour after Ativan 1 mg PO given. Patient reports feeling less anxious with decrease in symptoms. Clonidine 0.1 mg PO was effective one hour after administration as patient reports feeling more relaxed Trazodone 50 mg PO effectiveness fair, patient awake but states she is feeling tired. Motrin 600 mg effective as patient states current pain reduced to a 1-2 on pain scale.
--- NOTE | 2017-04-21 21:43 | NUR ---
Reassessment of Patient Reassessment of nausea one hour after administration of Zofran 4mg SL administered. Patient reports no further nausea.
[2017-04-22 00:01] VITALS: BP 115/66
--- NOTE | 2017-04-22 04:01 | NUR ---
Vital signs refused. CIWA/COWS deferred. Patient in bed resting with eyes closed. Respirations 16. Breathing even/unlabored. Patient refused 0400 vital signs. CIWA and COWS deferred for sleep.
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
--- NOTE | 2017-04-22 07:30 | NUR ---
START OF SHIFT NOTE Received report from night nurse, 26 year old female admitted for Opiate and Benzo dependence. Full code, regular diet, NKA. Per endorsement pt received PRN Ativan, Motrin, Clonidine, Zofran, Trazodone effective per night nurse. Pt's Last CIWA-3, COWS-4, slept for 6 hours. Received pt alert oriented x4, skin intact warm and dry to touch. Educated pt with plan of the day and medications regimen with good verbal understanding. All safety measures in place, Call light within reach. Will cont to monitor.
[2017-04-22 08:00] VITALS: BP 111/72
--- NOTE | 2017-04-22 11:27 | NUR ---
TAPER INITIATED Subutex/Ativan taper initiated COWS-12, CIWA-9.
[2017-04-22 12:00] VITALS: BP 128/67
[2017-04-22 16:00] VITALS: BP 118/70
--- NOTE | 2017-04-22 19:01 | NUR ---
END OF SHIFT NOTE Pt presented with anxiety, agitation, runny nose, yawning, Slight tremors. Pt started on Ativan and Subutex taper tolerated well. Pt was sen by Dr. Scanlon with new order of Lamictal 100 mg, medication administered as ordered no s/s of ASE noted. Pt remained compliant with treatment and medications. Pt stayed in her room most of the time. Vital signs WNL. She did not attend group and activities. Encourage Po fluids. last CIWA-7, COWS-7. All safety measures in place, call light within reach. Pt endorsed to night nurse in stable condition.
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
[2017-04-22 20:00] VITALS: BP 142/86
--- NOTE | 2017-04-22 21:48 | NUR ---
PRN SEROQUEL Pt requests Seroquel to help her sleep. PRN Seroquel administered as ordered. Breathing even and unlabored. Safety measures in place. Will monitor effectiveness.
--- NOTE | 2017-04-22 22:48 | NUR ---
PRN SEROQUEL REASSESSMENT PRN medication effective. Pt lying in bed with eyes closed noted to be asleep. Respirations 16, breathing even and unlabored. Safety measures in place. Will monitor.
--- NOTE | 2017-04-23 | NUR ---
VITALS REFUSED/COWS, CIWA DEFERRED 0000 vitals refused by pt. COWS and CIWA deferred d/t pt lying in bed with eyes closed noted to be asleep. Respirations 16, breathing even and unlabored. Safety measures in place. Will monitor.
--- NOTE | 2017-04-23 04:00 | NUR ---
VITALS REFUSED/COWS, CIWA DEFERRED 0400 vitals refused by pt. COWS and CIWA deferred d/t pt lying in bed with eyes closed noted to be asleep. Respirations 16, breathing even and unlabored. Safety measures in place. Will continue to monitor.
[2017-04-23 06:06] LABS: HEPATITIS B SURFACE AG Negative (Negative)
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
--- NOTE | 2017-04-23 07:50 | NUR ---
START OF SHIFT NOTE Received report from night nurse, 26 year old female admitted for Opiate and Benzo dependence. Full code, regular diet, NKA. Per endorsement pt received PRN Seroquel effective per night nurse. Pt's Last CIWA-8, COWS-9, slept for 7 hours. Received pt alert oriented x4, skin intact warm and dry to touch. Educated pt with plan of the day and medications regimen with good verbal understanding. All safety measures in place, Call light within reach. Will cont to monitor.
[2017-04-23 08:00] VITALS: BP 115/78
--- NOTE | 2017-04-23 08:43 | NUR ---
PRN MOTRIN Pt was c/o of headache 11/12, PRN Motrin 600mg Po administered as ordered. Will cont to monitor for effectiveness.
--- NOTE | 2017-04-23 09:43 | NUR ---
MOTRIN REASSESSMENT Pt reported medication effective, pain decreased to 1/10.
[2017-04-23 12:00] VITALS: BP 139/76
[2017-04-23 16:00] VITALS: BP 137/77
--- NOTE | 2017-04-23 19:14 | NUR ---
END OF SHIFT NOTE Pt presented with headache 4/10, pt was given PRN Motrin 600mg effective with pain level decreased to 1/10. Pt cont with Subutex and Ativan taper tolerating well. Pt remained compliant with treatment and medications. Vital signs WNL. She attended some group and activities. Encourage Po fluids. last CIWA-6, COWS-6. All safety measures in place, call light within reach. Pt endorsed to night nurse in stable condition.
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
[2017-04-23 20:00] VITALS: BP 144/85
--- NOTE | 2017-04-23 21:53 | NUR ---
PRN ZOFRAN Pt complains of nausea with no episode of vomiting. PRN Zofran administered as ordered. Will monitor effectiveness.
--- NOTE | 2017-04-23 22:23 | NUR ---
PRN ZOFRAN REASSESSMENT PRN medication effective. Pt reports decrease in nausea. Will monitor.
--- NOTE | 2017-04-23 22:25 | NUR ---
PRN SEROQUEL Pt requests for her Seroquel at bed time for sleep. PRN Seroquel administered as ordered. Safety measures in place. Will monitor effectiveness.
--- NOTE | 2017-04-23 22:43 | NUR ---
PRN MIRALAX Pt complains of constipation and reports last BM was two days ago. PRN Miralax mixed with 8 oz of apple juice and administered as ordered. Encouraged fluids. Pt verbalized understanding. Will monitor.
--- NOTE | 2017-04-23 23:25 | NUR ---
PRN SEROQUEL REASSESSMENT PRN medication effective. Pt lying in bed with eyes closed noted to be asleep. Safety measures in place. Will monitor.
--- NOTE | 2017-04-23 23:43 | NUR ---
PRN MIRALAX REASSESSMENT PRN medication ineffective at this time. Pt has not reported BM within an hour of administration. Will continue to monitor
--- NOTE | 2017-04-24 | NUR ---
VITALS REFUSED/COWS, CIWA DEFERRED 0000 vitals refused. COWS and CIWA deferred d/t pt lying in bed with eyes closed noted to be asleep. Respirations 16, breathing is even and unlabored. Safety measures in place. Will monitor.
--- NOTE | 2017-04-24 04:00 | NUR ---
VITALS REFUSED, COWS,CIWA DEFERRED 0400 vitals refused. COWS and CIWA deferred d/t pt lying in bed with eyes closed noted to be asleep. Respirations 16, breathing is even and unlabored. Safety measures in place. Will monitor.
--- NOTE | 2017-04-24 07:02 | NUR ---
Start of Shift Endorsement received from nightshift nurse. Pt is a 26 y/o female admitted for Heroin, Xanax, Cocaine and Marihuana. Pt experienced an OD prior to admission. Pt has been placed on a modified Subutex and Ativan taper. Pt is set to complete both tapers today. Pt received PRN Zofran, Seroquel, Miralax. Pt report sleeping 7 hours. PT is tolerating the taper and moderately withdrawing at this time AEB COWS 6, CIWA 6. VS WNL. Full Code. PT is alert and oriented x4. Pt is in STABLE condition at this time. Remains compliant with medication and diet regimen. All needs have been met, All safety measures in place per hospital policy. Bed in lowest position, side rails up x2, call-light within reach. Will continue to monitor
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
[2017-04-24 08:00] VITALS: BP 131/83
[2017-04-24 12:00] VITALS: BP 150/87
--- NOTE | 2017-04-24 14:36 | NUR ---
Late entry: Pt. was prompted to attend group on 04/23/17 as she was observed in her room during group time. Patient stated that she was feeling too sedated to stay in group and was told she " is too sleepy" to be in there. She agreed to attend group after she has slept for 24 hours.
[2017-04-24 16:00] VITALS: BP 143/89
--- NOTE | 2017-04-24 19:10 | NUR ---
End of Shift Endorsement given to nightshift nurse. Pt is a 26 y/o female admitted for Heroin, Xanax, Cocaine and Marihuana. Pt experienced an OD prior to admission. Pt has been placed on a modified Subutex and Ativan taper. PT was set to complete both tapers today however Dr. Johnston has extended the pt's taper by a day due to pt's continuos withdrawal symptoms. PT presents with +2 pitting Edema in both hands, Dr. Johnston has been notified and aware of the symptoms. PT also presents with caninus tachycardia, is aware. Pt did not receive any PRN medications. PT participated in groups and activities. Intake: 1300ml, Void x4, BM x1. PT is tolerating the taper and moderately withdrawing at this time AEB COWS 7, CIWA 7. VS WNL. Full Code. PT is alert and oriented x4. Pt is in STABLE condition at this time. Remains compliant with medication and diet regimen. All needs have been met, All safety measures in place per hospital policy. Bed in lowest position, side rails up x2, call-light within reach. Will continue to monitor
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
[2017-04-24 20:00] VITALS: BP 148/94
--- NOTE | 2017-04-24 21:35 | NUR ---
PRN SEROQUEL Pt complains of inability to sleep. PRN Seroquel administered as ordered. Will monitor effectiveness.
--- NOTE | 2017-04-24 22:35 | NUR ---
PRN SEROQUEL REASSESSMENT PRN medication effective. Pt lying in bed with eyes closed noted to be asleep. Breathing even and unlabored. Safety measures in place. Will monitor.
--- NOTE | 2017-04-25 00:07 | NUR ---
VITALS REFUSED/COWS, CIWA DEFERRED 0000 vitals refused by pt. COWS and CIWA deferred d/t pt lying in bed with eyes closed noted to be asleep. Respirations 16, breathing is even and unlabored. Safety measures in place. Will monitor.
--- NOTE | 2017-04-25 04:00 | NUR ---
VITALS REFUSED/COWS, CIWA DEFERRED 0400 vitals refused by pt. COWS and CIWA deferred d/t pt lying in bed with eyes closed noted to be asleep. Respirations 16, breathing is even and unlabored. Safety measures in place. Will monitor.
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
[2017-04-25 08:00] VITALS: BP 124/70
--- NOTE | 2017-04-25 10:06 | NUR ---
START OF SHIFT Received report from cnc machinist 2nd shift nurse. Patient is 26 year old female admitted for medically supervised withdrawal from alcohol and opiates. Patient is full code with NKA. Patient on modified ativan and subutex taper. On assessment this AM: CIWA: 8 and COWS: 6. Denies SOB, chest pain. Patients vitals signs WNL. Reports anxiety, body aches, tremors (noted), stuffy nose, nausea and tingling sensation. Bilateral hands edema noted and ecchymosis around both eyes. MD aware per reprort from cnc machinist 2nd shift RN. Med compliant with AM meds. No PRN given. Patient was encouraged to attend group meetings today. Will continue to monitor patient.
--- NOTE | 2017-04-25 11:35 | NUR ---
ENDORSEMENT OF PATIENT Report given to TAYLOR Buckner
--- NOTE | 2017-04-25 11:36 | NUR ---
Assumed care: Assumed care for the patient at this time. Patient is a 26 year old female admitted for opiate/BZO dependence who was placed on a Ativan and Subutex taper. NKA. FULL CODE. Regular diet. On fall and seizure precautions. Will continue to monitor throughout the day.
[2017-04-25 12:00] VITALS: BP 127/76
--- NOTE | 2017-04-25 14:10 | NUR ---
Vistaril 25 mg PO given: Patient verbalizes "I have anxiety right now." VS stable. Encouraged patient to verbalize her feelings and concerns with no relief. Medicated patient with Vistaril 25 mg PO as ordered. Will monitor for effectiveness.
--- NOTE | 2017-04-25 15:10 | NUR ---
Re-assessment: Vistaril per patient, PRN Vistaril was effective in reducing anxiety.
--- NOTE | 2017-04-25 15:28 | NUR ---
MD Communication: Order clarification obtained from MD Johnston regarding patient's 1500 dose of Bentyl, Baclofen, and Gabapentin. New orders of Bentyl, Baclofen and Gabapentin were all held for 1500 per MD. Patient already received Bentyl, Baclofen and Gabapentin as originally ordered at 1500.
[2017-04-25 16:00] VITALS: BP 116/64
[2017-04-25] MEDS ORDERED: GABA-536 PO (18:40)
[2017-04-25] MEDS ORDERED: BACL20TA PO (18:40)
[2017-04-25] MEDS ORDERED: NAPR500T3 PO (18:40)
[2017-04-25] MEDS ORDERED: CLON0.1T14 PO (18:40)
[2017-04-25] MEDS ORDERED: ACET325T53 PO (18:40)
[2017-04-25] MEDS ORDERED: HYDR-3895 PO (18:40)
[2017-04-25] MEDS ORDERED: DICY20TA28 PO (18:40)
--- NOTE | 2017-04-25 18:52 | NUR ---
End of Shift Notes: Patient is a 26 year old female admitted for opiate/BZO, cocaine and marijuana dependence who was placed on a Ativan and Subutex taper as ordered. No adverse reactions noted. VS monitored closely. No significant abnormalities noted. Withdrawal symptoms were closely monitored. Patient presented with anxiety, agitation and muscle aches and stomach cramps during the day. PRN Vistaril 25 mg PO given at 1410 due to anxiety with help after 1 hour. Last COWS 2/CIWA 2. Patient will be discharging tomorrow. Compliant with care and treatment. All needs met and attended. Will continue to monitor closely.
--- NOTE | 2017-04-25 19:05 | NUR ---
Start of Shift Patient Received. Patient is in activities room participating in group activities. Patient is a 26 year old female admitted on 04/21/17 for Opiate and Benzo Dependence under the care of Dr. Johnston. Patient verbalizes no known allergies, wishes to be full code, following a regular diet, placed on fall and seizure precautions, and skin noted intact. Patients past medical history noted as UTI, Chronic back pain, Anxiety, Depression, bipolar, with no history of seizures noted. Per endorsement, patient was given PRN Vistaril for anxiety with medication noted to be effective. Patient is set for discharge tomorrow. Last noted COWS 2 and CIWA 2. All needs attended to promptly. Will continue plan of care as ordered.
[2017-04-25 20:31] VITALS: BP 155/71
--- NOTE | 2017-04-25 21:10 | NUR ---
PRN Medication Administration Patient verbalizing increased anxiety and inability of falling asleep. PRN Vistaril and Seroquel administered as per orders. Will continue to monitor.
--- NOTE | 2017-04-25 22:00 | NUR ---
PRN Medication Reassessment Patient noted in bed sleeping. Breathing even and non labored. No signs of pain or discomfort noted. PRN Vistaril and Seroquel administered for increased anxiety and inability of falling asleep with medication noted to be effective. Patient is sleeping with no complications noted. Will continue to monitor.
[2017-04-26] VITALS: BP 114/81
[2017-04-26 04:05] VITALS: BP 116/73
--- NOTE | 2017-04-26 07:02 | NUR ---
End of Shift Patient is in bed sleeping. Breathing even and non labored. No signs of pain or discomfort noted. Patient is a 26 year old female admitted on 04/21/17 for Opiate and Benzo Dependence under the care of Dr. Johnston. No known allergies, Full Code, Regular Diet, placed on fall and seizure precautions, and skin noted intact. Patient was given PRN Vistaril and Seroquel for anxiety and inability of falling asleep with medications noted to be effective. Patient noted to sleep a total of 5 hours. Patient is set for discharge today. Last noted COWS 4 and CIWA 5. All needs attended to promptly. Will endorse to continue plan of care as ordered.
--- NOTE | 2017-04-26 07:03 | NUR ---
Start of Shift Notes: Received patient in her room. Alert and verbally responsive. Able to make needs known. Respirations even and unlabored. No SOB noted. Skin warm and dry to touch. Abdomen soft and non-distended with (+) BS in all 4 quadrants. No complains of N/v/D or constipation noted. Voids independently. Ambulatory ad rosas with steady gait. Patient is a 26 year old female admitted for opiate and BZO dependence who was placed on a 5-day Ativan and 5-day Subutex taper as ordered. No adverse reactions noted. Patient completed her taper and will be discharging today. Patient education provided regarding the discharge process. Patient verbalized good understanding. On fall and seizure precautions. All needs met and attended. Will continue to monitor closely.
[2017-04-26 08:00] VITALS: BP 116/71
--- NOTE | 2017-04-26 08:39 | NUR ---
Vistaril 25 mg pO given: Patient verbalizes anxiety related to the discharge process and feeling nervous. Encouraged patient to verbalize feeling and concerns. Reassurance provided with no help. Medicated patient with Vistaril 25 mg PO as ordered. Will monitor for effectiveness. l
[2017-04-26 08:40] VITALS: BP 116/71
--- NOTE | 2017-04-26 09:25 | NUR ---
Discharged: Patient left the unit at this time in stable condition. PRN Vistaril was effective in relieving anxiety. Patient education provided regarding her discharge instructions and her prescriptions. Copy of TB test was given placed inside the blue/black duffel bag with all her necessary paperwork. Patient appears motivated to move on to sobriety. All clothings and valuabeles were returned to the patient. Escorted off the unit and picked up by [employer] [facility] to be transported to [facility].
== END 2017-04-26 09:25 | disposition other institution (70) | DRG 895 ==
LOC: SRC 15:00
PROVIDERS: ADMIT Internal Medicine; ATTEND Internal Medicine
PROC: HZ2ZZZZ Detoxification Services for Substance Abuse Treatment (ICD-10-PCS; principal; 2017-04-21)
PROC: HZ31ZZZ Individual Counseling for Substance Abuse Treatment, Behavioral (ICD-10-PCS; 2017-04-22)
PROC: HZ41ZZZ Group Counseling for Substance Abuse Treatment, Behavioral (ICD-10-PCS; 2017-04-23)
DX: F11.23 Opioid dependence with withdrawal (principal); F31.81 Bipolar II disorder; F14.10 Cocaine abuse, uncomplicated; E87.6 Hypokalemia; F17.210 Nicotine dependence, cigarettes, uncomplicated; B37.3 Candidiasis of vulva and vagina; F43.10 Post-traumatic stress disorder, unspecified; Z59.0 Homelessness; F13.230 Sedative, hypnotic or anxiolytic dependence with withdrawal, uncomplicated; Z91.14 Patient's other noncompliance with medication regimen; Z91.89 Other specified personal risk factors, not elsewhere classified; G47.00 Insomnia, unspecified; F90.9 Attention-deficit hyperactivity disorder, unspecified type; Z82.49 Family history of ischemic heart disease and other diseases of the circulatory system; Z81.8 Family history of other mental and behavioral disorders; N76.0 Acute vaginitis; F12.90 Cannabis use, unspecified, uncomplicated; R74.0 Nonspecific elevation of levels of transaminase and lactic acid dehydrogenase [LDH]
CPT/HCPCS: 36415; 70030-TC; 80307; 80349; 80353; 80361; 83735; 84703; 85025; 86580; 86592; 86705; 86803; 87340; 87806; A4663; G0480; Q0162